=== PATIENT | female | born 1945 | race Caucasian/White ===

== ENCOUNTER → 2017-05-02 | Outpatient (CLI) | payer OTHER | LOC: FIMAGING 14:26 | PROVIDERS: ATTEND Family Medicine | DX: Z12.31 Encounter for screening mammogram for malignant neoplasm of breast (principal) | CPT/HCPCS: G0202 ==

== ENCOUNTER 2017-06-12 12:34 | Emergency (ER) | payer OTHER ==
[2017-06-12 12:46] VITALS: RESP 18; TEMP 97.9
--- NOTE | 2017-06-12 13:18 | EDPHY ---
H & P Stated Complaint: Doing pilates;rolled onto apparatus & hit R ribs;sent by PCP for eval Time Seen by Provider: 06/12/17 13:18 - Personal History Current Tetanus Diphtheria and Acellular Pertussis (TDAP): Unsure - Social History Smoking Status: Never smoked Constitutional: Initial Vital Signs Temperature (C) 36.6 C 06/12/17 12:41 Heart Rate 65 06/12/17 12:41 Respiratory Rate 18 06/12/17 12:41 Blood Pressure 141/68 H 06/12/17 12:41 O2 Sat (%) 96 06/12/17 12:41 O2 Delivery Mode Room Air Allergies/Adverse Reactions: codeine Allergy (Mild, Verified 06/12/17 12:45) GI Home Medications: Medication Instructions Recorded Hydrocodone/APAP 5/325 [Bethesda 1 - 2 each PO Q4-6PRN PRN #20 tab 06/12/17 5/325] Ibuprofen [Motrin] 800 mg PO Q8 #20 tab 06/12/17 Medical Decision Making - Diagnostics Imaging Results: Imaging Impressions Ribs w/Chest X-Ray 06/12/17 13:22 Impression: 1. Likely two, not significantly displaced, right lateral rib fractures. 2. New right lung apex nodule. Recommend noncontrast chest CT for further evaluation. Results discussed with Dr. Aviles at 2:03 PM ED Course/Re-evaluation: CHIEF COMPLAINT: Right rib pain HISTORY OF PRESENT ILLNESS: Patient was doing Pilates last Saturday and fell onto her right ribs. She feels like she has some rib pain and contusion but she thought that the pain should resolved by now so she came to the emergency department to get checked out. She has been using a little bit of ibuprofen. She denies shortness of breath. She denies any injury to the skin. She denies any other injury. REVIEW OF SYSTEMS: A 10 point review of systems was performed and is negative with the exception of the elements mentioned in the history of present illness. PHYSICAL EXAM: HR, BP, O2 Sat, RR. Temp noted General Appearance: Alert, well hydrated, appropriate, and non-toxic appearing. Head: Atraumatic without scalp tenderness or obvious injury Eyes: Pupils equal, round, reactive to light and accommodation, EOMI, no trauma , no injection. Ears: Clear bilaterally, no perforation, normal landmarks Nose: Atraumatic, no rhinorrhea, clear. Throat: There is no erythema or exudates, no lesions, normal tonsils, mucus membranes moist. Neck: Supple, 2+ carotid upstroke, nontender, no lymphadenopathy. Respiratory: No retractions, no distress, no wheezes, and no accessory muscle use. Lungs are clear to auscultation bilaterally. Cardiovascular: Regular rate and rhythm, no murmurs, rubs, or gallops. Bilateral carotid, radial, dorsalis pedis, and posterior tibial pulses intact. Good capillary refill all extremities. Gastrointestinal: Abdomen is soft, nontender, non-distended, no masses, no rebound, no guarding, no peritoneal signs. Musculoskeletal: Pain to palpation over the right lateral ribs. No skin injury. Normal breath sounds Normal active ROM of all extremities, atraumatic. Neurological: Alert, appropriate, and interactive. The patient has normal DTRs and non-focal cranial nerves, motor, sensory, and cerebellar exam. Skin: No rashes, good turgor, no nodules on palpation. Past medical history: Noncontributory Past surgical history: Noncontributory Family history: Noncontributory Social history: Single, not employed, does not abuse tobacco drugs or alcohol lives alone DIAGNOSTICS/PROCEDURES/CRITICAL CARE TIME: Study: PA and two views of the right ribs X-ray Indication: Trauma Results: After viewing the images myself on the PACS system. My interpretation of the images is: 2 nondisplaced rib fractures and a pulmonary nodule. The radiologist interpretation is pending. DIFFERENTIAL DIAGNOSIS: Includes but is not limited to: Rib fracture, rib contusion, musculoskeletal injury, internal organ injury. MEDICAL DECISION MAKING: This patient has mild tenderness to palpation along the right lateral ribs. She does want an x-ray even though I am not suspecting a lung injury. She did this about 5 days ago and she feels like it should be better by now. She does state it is somewhat better but not completely and that is why she is here. She has 2 nondisplaced rib fractures. I will ask her to use some ibuprofen and I will give her a few Vicodin. And incentive spirometer I will also ask this patient follow up to get a CT scan of her pulmonary nodule which is new compared to a prior x-ray from 2014 Departure - Departure Disposition: Home, Routine, Self-Care Clinical Impression: Ribs, multiple fractures Qualifiers: Encounter type: initial encounter Fracture type: closed Laterality: right Qualified Code(s): S22.41XA - Multiple fractures of ribs, right side, initial encounter for closed fracture Condition: Good Instructions: Rib Fracture (ED) Additional Instructions: See your doctor but a follow-up noncontrast chest CT for pulmonary nodule Referrals: Miguel Denis MD [Primary Care Provider] - As per Instructions Prescriptions: Hydrocodone/APAP 5/325 [Bethesda 5/325] 1 - 2 each PO Q4-6PRN PRN #20 tab PRN Reason: Pain, Moderate Ibuprofen [Motrin] 800 mg PO Q8 #20 tab
[2017-06-12 14:44] VITALS: BP 144/78; PULSE 76; O2SAT 95
== END 2017-06-12 14:52 | disposition home or self-care (01) ==
DX: S22.41XA Multiple fractures of ribs, right side, initial encounter for closed fracture (principal); W18.39XA Other fall on same level, initial encounter

== ENCOUNTER → 2017-07-02 | Outpatient (CLI) | payer OTHER | LOC: FIMAGING 14:49 | PROVIDERS: ATTEND Family Medicine | DX: R91.1 Solitary pulmonary nodule (principal); I25.10 Atherosclerotic heart disease of native coronary artery without angina pectoris; D35.01 Benign neoplasm of right adrenal gland ==

== ENCOUNTER → 2018-04-01 | Outpatient (CLI) | payer OTHER | LOC: FIMAGING 16:44 | PROVIDERS: ATTEND Nurse Practitioner | DX: R22.41 Localized swelling, mass and lump, right lower limb (principal) ==

== ENCOUNTER → 2018-06-12 | Outpatient (CLI) | payer OTHER | LOC: FIMAGING 15:30 | PROVIDERS: ATTEND Family Medicine | DX: Z12.31 Encounter for screening mammogram for malignant neoplasm of breast (principal); C90.00 Multiple myeloma not having achieved remission ==

== ENCOUNTER 2018-11-07 21:55 | Inpatient (IN) | payer OTHER ==
--- NOTE | 2018-11-07 22:13 | EDPHY ---
General - History Smoking Status: Never smoked Time Seen by Provider: 11/07/18 22:06 Narrative: CLINICAL IMPRESSION: RSV ASSESSMENT/PLAN: Patient is a 73-year-old female with a significant medical history of multiple myeloma currently on oral chemotherapy who presents with complaints of fever, runny nose and cough. Patient is afebrile, she is tired appearing however not toxic-appearing. She was noted to have mild tachycardia on arrival, oxygen saturation was 91% on room air. Laboratory studies were obtained including CBC which revealed no evidence of leukocytosis. Procalcitonin which was within normal limits. Basic metabolic panel which revealed hyponatremia, I suspect this is secondary to poor intake. CXR with no evidence of consolidation. Influenza negative, RSV positive. The patient was observed for a period of time and proceeded to have multiple coughing episodes, on repeat examination her oxygen saturation was 89% on room air. Subsequently another nebulizer treatment with lidocaine was ordered, this mildly improved her cough and improved her oxygen saturation to the low 90s. History of physical examination is consistent with RSV with intermittent hypoxia requiring oxygen. The patient will be admitted to the hospitalist service for further observation and management, I spoke directly with Dr. Hughes who will be the admitting physician. On repeat examination and prior to transfer to the floor she is tired appearing however in no acute distress, heart rate continued in the low 100s. DIFFERENTIAL DX: Adult fever including but not limited to viral syndromes including influenza, urinary tract infection, pneumonia and sepsis. ED COURSE: 2332: Case discussed with Dr. Marrufo 2355: Patient with reassuring workup thus far. WBC normal, procalcitonin normal. Patient noted to be hyponatremic however she has had poor intake. Influenza still pending. Chest x-ray with no evidence of consolidation or pneumonia. Patient still with frequent dry cough. Will trial inhaled lidocaine. 0010: On repeat examination the patient is still very tired appearing. She has frequent dry cough. Her oxygen saturation was noted to be 89% on room air. CHIEF COMPLAINT: Fever, runny nose, cough HPI: Patient is a 73-year-old female with a significant history of multiple myeloma currently on oral chemotherapy who presents to the emergency department with fever, runny nose, sore throat, postnasal drip and worsening cough. Patient reports she lost her mother this past Saturday night, she was spending time at [facility] when she started to have a little bit of runny nose and postnasal drip. On Saturday she noted increased drainage and increased sore throat. On Saturday she reports "a full blown cold". Patient reports since that time she has had increased cough, it is dry and nonproductive. She is generally feeling unwell. She denies any chest pain, shortness of breath or abdominal pain. She did have a fever of T-max prior to arrival at 104 F, has not taken any medication for fever control. She is currently in remission from multiple myeloma since May however is continuing Revlimid, Bactrim and acyclovir. She denies any neck stiffness, difficulty swallowing or myalgias. She denies any headache or dizziness. PMH: Multiple myeloma Family History: Not contributory Social History: Never smoker, CBD REVIEW OF SYSTEMS: All other systems negative Constitutional: Fever, decreased appetite. Eyes: No discharge, vision change ENT: Sore throat, runny nose. Denies congestion or earache. Cardiovascular: No chest pain, no palpitations. Respiratory: Cough, denies shortness of breath. Gastrointestinal: No abdominal pain, no vomiting, diarrhea. Genitourinary: No hematuria, dysuria, flank pain. Musculoskeletal: No back pain, joint swelling, joint pain, myalgias. Skin: No rashes, color change. Neurological: No headache, dizziness, weakness. PHYSICAL EXAM: General Appearance: Alert, elderly, thin, tired appearing however not toxic- appearing.. HENT: Normocephalic, atraumatic. Bilateral external ears are normal. Bilateral tympanic membranes are normal with pearly kiser reflex. Nares are clear, mucosa is pink. Oropharynx is clear, uvula is midline. There is no tonsillar enlargement or exudate. Posterior pharynx is mildly erythematous. The dentition is normal. Eyes: PERRLA, no acute vision change, nystagmus, swelling, discharge, pain or photosensitivity. Conjunctiva pink, no pallor or injection. Neck: Supple, nontender, no lymphadenopathy, no midline pain, FROM, no meningismus. Respiratory: Frequent dry cough. There are no retractions. Lungs with global expiratory wheeze, failing diminished along the left lower and mid lobe. Cardiac: Mild tachycardia on arrival, no murmurs or gallops. Gastrointestinal: Abdomen is soft, nontender, bowel sounds normal, no masses/ hernia, no rigidity, guarding or focal peritoneal findings. Neurological: Alert and oriented x 3, CN 2-12 grossly intact, normal gait no ataxia, DTR's intact, normal sensation and strength Skin: Warm, dry, no rashes, no nodules on palpation. Musculoskeletal: Extremities are symmetrical, full range of motion, no tenderness, deformity, swelling, or erythema. Psychiatric: Patient is oriented X 3, there is no agitation. MEDICAL DECISION MAKING: Patient was seen independently. Secondary supervising physician at time of evaluation was Dr. Marrufo. Diagnosis: RSV. New, requires workup Summary: See Assessment and Plan for summary of ED visit Clinical lab tests: ordered / reviewed. Independent visualization of images, tracing, or specimens: Yes. Decision to obtain medical records or history from someone other than the patient: No Review / Summarize previous medical records: Yes Discussed patient with another provider: Yes Patient Progress: Stable, admit. (Samantha Lara) ED PA DICTATION I evaluated and participated in the management of the patient. I also evaluated the patient independently. My co-signature indicates that I have reviewed this chart and I agree with the findings and plan of care as documented. My personal H&P findings include: 73-year-old female with medical comorbidities presents with cough, fever, tachycardia. Testing reveals normal chest x-ray, RSV positivity. Patient with some respiratory distress due to cough, mild hypoxia present. Plan to admit her to the hospital. (Niki Marrufo) - Diagnostics Imaging Results: Imaging Impressions Chest X-Ray 11/07/18 22:25 Impression: 1. Prominence of pericardial fat pad is left heart border along with chronic subsegmental atelectasis in the lingula. 2. No active cardiopulmonary disease seen. - Objective Vital Signs: Initial Vital Signs Temperature (C) 37.7 C 11/07/18 22:01 Heart Rate 107 H 11/07/18 22:01 Respiratory Rate 18 11/07/18 22:01 Blood Pressure 117/65 11/07/18 22:01 O2 Sat (%) 91 L 11/07/18 22:01 O2 Delivery Mode Room Air Allergies/Adverse Reactions: codeine Allergy (Mild, Verified 06/12/17 12:45) GI Home Medications: Medication Instructions Recorded Acyclovir 11/07/18 Bactrim DS 11/07/18 Lenalidomide [Revlimid] 11/07/18 Laboratory Results: Laboratory Results 11/07/18 22:25 11/07/18 22:25 11/07/18 11/07/18 11/07/18 22:40 22:25 22:25 WBC 7.73 10^3/uL 10^3/uL (3.80-9.50) RBC 3.98 10^6/uL L 10^6/uL (4.18-5.33) Hgb 13.2 g/dL g/dL (12.6-16.3) Hct 38.0 % % (38.0-47.0) MCV 95.5 fL fL (81.5-99.8) MCH 33.2 pg pg (27.9-34.1) MCHC 34.7 g/dL g/dL (32.4-36.7) RDW 13.9 % % (11.5-15.2) Plt Count 178 10^3/uL 10^3/uL (150-400) MPV 9.7 fL fL (8.7-11.7) Neut % (Auto) 76.6 % H % (39.3-74.2) Lymph % (Auto) 15.0 % % (15.0-45.0) [place] % (Auto) 7.8 % % (4.5-13.0) Eos % (Auto) 0.0 % L % (0.6-7.6) Baso % (Auto) 0.3 % % (0.3-1.7) Nucleat RBC Rel Count 0.0 % % (0.0-0.2) Absolute Neuts (auto) 5.93 10^3/uL 10^3/uL (1.70-6.50) Absolute Lymphs (auto) 1.16 10^3/uL 10^3/uL (1.00-3.00) Absolute Monos (auto) 0.60 10^3/uL 10^3/uL (0.30-0.80) Absolute Eos (auto) 0.00 10^3/uL L 10^3/uL (0.03-0.40) Absolute Basos (auto) 0.02 10^3/uL 10^3/uL (0.02-0.10) Absolute Nucleated RBC 0.00 10^3/uL 10^3/uL (0-0.01) Immature Gran % 0.3 % % (0.0-1.1) Immature Gran # 0.02 10^3/uL 10^3/uL (0.00-0.10) Sodium 129 mEq/L L mEq/L (135-145) Potassium 3.6 mEq/L mEq/L (3.5-5.2) Chloride 97 mEq/L mEq/L (97-110) Carbon Dioxide 21 mEq/l L mEq/l (22-31) Anion Gap 11 mEq/L mEq/L (6-14) BUN 12 mg/dL mg/dL (7-23) Creatinine 0.7 mg/dL mg/dL (0.6-1.0) Estimated GFR > 60 Glucose 109 mg/dL H mg/dL (70-100) Calcium 8.5 mg/dL mg/dL (8.5-10.4) Procalcitonin 0.04 ng/mL ng/mL (0.02-0.10) Nasal Influenza A PCR NEGATIVE FOR FLU A (NEGATIVE) Nasal Influenza B PCR NEGATIVE FOR FLU B (NEGATIVE) RSV (PCR) RSV DETECTED H (NEGATIVE) Medications Given: Acetaminophen (Tylenol) 650 mg PO Q4HRS PRN PRN Reason: Pain, Mild/Fever, Can Take PO Stop: 05/07/19 00:32 Last Admin: 11/08/18 01:19 Dose: 650 mg Guaifenesin/Dextromethorphan (Robitussin Dm Oral Liquid) 10 ml PO Q4HRS PRN PRN Reason: Cough, Moderate Stop: 05/07/19 00:46 Last Admin: 11/08/18 01:19 Dose: 10 ml Sodium Chloride (Ns) 1,000 mls @ 100 mls/hr IV CONT NICK Stop: 11/08/18 10:44 Last Admin: 11/08/18 01:19 Dose: 1,000 mls Lorazepam (Ativan) 0.5 mg PO Q8HRS PRN PRN Reason: Sleep/Insomnia Stop: 05/07/19 03:20 Last Admin: 11/08/18 03:56 Dose: 0.5 mg Discontinued Medications Albuterol (Proventil Neb) 3 ml IH EDNOW ONE Stop: 11/07/18 22:27 Last Admin: 11/07/18 22:58 Dose: 3 ml Sodium Chloride (Ns) 1,000 mls @ 0 mls/hr IV ONCE ONE PRN Reason: Wide Open Stop: 11/07/18 22:27 Last Admin: 11/07/18 22:57 Dose: 1,000 mls Lidocaine HCl (Lidocaine Hcl 4%) 100 mg IH ONCE ONE Stop: 11/07/18 23:53 Last Admin: 11/08/18 00:29 Dose: 100 mg Departure - Departure Disposition: [facility] Acute Clinical Impression: RSV (acute bronchiolitis due to respiratory syncytial virus)
[2018-11-07] MEDS ORDERED: ALBUTEROL 3 ML DEYVIAL IH ONE (22:26)
[2018-11-07] MEDS ORDERED: NS 1,000 ML IV ONE (22:26)
[2018-11-07 23:02] LABS: PLATELET COUNT 178 10^3/uL (150-400)
[2018-11-07] MEDS ORDERED: LIDOCAINE 4% 5 ML AMP IH ONE (23:52)
[2018-11-08] MEDS ORDERED: ONDANSETRON DISINTEGRATING 4 MG TAB PO PRN ×2 (00:33→00:44)
[2018-11-08] MEDS ORDERED: ONDANSETRON 4 MG/2 ML VIAL IVP PRN ×2 (00:33→00:44)
[2018-11-08] MEDS ORDERED: IBUPROFEN 200 MG TAB PO PRN (00:44)
[2018-11-08] MEDS ORDERED: ALBUTEROL 3 ML DEYVIAL IH PRN (00:44)
[2018-11-08] MEDS ORDERED: NS 1,000 ML IV SCH (00:45)
[2018-11-08] MEDS ORDERED: CEPACOL LOZENGE PO PRN (00:47)
[2018-11-08] MEDS: ACETAMINOPHEN 325 MG TAB PO PRN ×2 (01:19→12:28)
[2018-11-08] MEDS: GUAIFENESIN/DM 10 ML UDCUP PO PRN ×2 (01:19→09:45)
[2018-11-08] MEDS: LORazepam 0.5 MG TAB PO PRN (03:56)
[2018-11-08 04:57] LABS: PLATELET COUNT 157 10^3/uL (150-400)
--- NOTE | 2018-11-08 05:04 | PDGENHP ---
History and Physical - Chief Complaint Cough - History of Present Illness Source-patient provides history appears reliable. EMR was reviewed and case discussed with ED provider. HPI-this is a pleasant 73-year-old female with past medical history significant for multiple myeloma in remission otherwise healthy who presents emergency department today with complaints of 5 days of worsening sore throat, rhinorrhea and occasional productive cough with yellow sputum. Patient also notes particularly increased malaise and fatigue. She denies any myalgias. She denies any nausea/vomiting/diarrhea. Patient suspect she has had several sick contacts that she has been mostly at [facility] over the past week since her mother just recently a week ago. History Information - Allergies/Home Medication List Allergies/Adverse Reactions: codeine Allergy (Mild, Verified 06/12/17 12:45) GI Home Medications: Acyclovir 11/07/18 [Last Taken Unknown] Bactrim DS 11/07/18 [Last Taken Unknown] Lenalidomide [Revlimid] 11/07/18 [Last Taken Unknown] I have personally reviewed and updated: family history, medical history, social history, surgical history - Past Medical History Additional medical history: Multiple myeloma reported in remission status post stem cell transplant and currently on Revlimid. Patient on continuous prophylactic acyclovir and Bactrim. - Surgical History Reports: appendectomy - Family History Positive for: CAD - Social History Smoking Status: Never smoked Alcohol Use: Occasionally (Few glasses of wine per week with dinner.) Drug Use: Other (CBD oil) Review of Systems Review of Systems: ROS: 10pt was reviewed & negative except for what was stated in HPI & below Physical Exam Physical Exam: Temp Pulse Resp BP Pulse Ox 37.7 C 94 16 115/74 92 11/08/18 02:53 11/08/18 02:53 11/08/18 02:53 11/08/18 01:00 11/08/18 02:53 O2 (L/minute) 1 Lab Data & Imaging Review 11/08/18 04:20 11/07/18 22:25 WBC 6.26 10^3/uL (3.80-9.50) 11/08/18 04:20 RBC 3.61 10^6/uL (4.18-5.33) L 11/08/18 04:20 Hgb 12.0 g/dL (12.6-16.3) L 11/08/18 04:20 Hct 35.2 % (38.0-47.0) L 11/08/18 04:20 MCV 97.5 fL (81.5-99.8) 11/08/18 04:20 MCH 33.2 pg (27.9-34.1) 11/08/18 04:20 MCHC 34.1 g/dL (32.4-36.7) 11/08/18 04:20 RDW 14.1 % (11.5-15.2) 11/08/18 04:20 Plt Count 157 10^3/uL (150-400) 11/08/18 04:20 MPV 9.9 fL (8.7-11.7) 11/08/18 04:20 Neut % (Auto) 74.4 % (39.3-74.2) H 11/08/18 04:20 Lymph % (Auto) 15.5 % (15.0-45.0) 11/08/18 04:20 [place] % (Auto) 9.6 % (4.5-13.0) 11/08/18 04:20 Eos % (Auto) 0.0 % (0.6-7.6) L 11/08/18 04:20 Baso % (Auto) 0.2 % (0.3-1.7) L 11/08/18 04:20 Nucleat RBC Rel Count 0.0 % (0.0-0.2) 11/08/18 04:20 Absolute Neuts (auto) 4.66 10^3/uL (1.70-6.50) 11/08/18 04:20 Absolute Lymphs (auto) 0.97 10^3/uL (1.00-3.00) L 11/08/18 04:20 Absolute Monos (auto) 0.60 10^3/uL (0.30-0.80) 11/08/18 04:20 Absolute Eos (auto) 0.00 10^3/uL (0.03-0.40) L 11/08/18 04:20 Absolute Basos (auto) 0.01 10^3/uL (0.02-0.10) L 11/08/18 04:20 Absolute Nucleated RBC 0.00 10^3/uL (0-0.01) 11/08/18 04:20 Immature Gran % 0.3 % (0.0-1.1) 11/08/18 04:20 Immature Gran # 0.02 10^3/uL (0.00-0.10) 11/08/18 04:20 Sodium 129 mEq/L (135-145) L 11/07/18 22:25 Potassium 3.6 mEq/L (3.5-5.2) 11/07/18 22:25 Chloride 97 mEq/L (97-110) 11/07/18 22:25 Carbon Dioxide 21 mEq/l (22-31) L 11/07/18 22:25 Anion Gap 11 mEq/L (6-14) 11/07/18 22:25 BUN 12 mg/dL (7-23) 11/07/18 22:25 Creatinine 0.7 mg/dL (0.6-1.0) 11/07/18 22:25 Estimated GFR > 60 11/07/18 22:25 Glucose 109 mg/dL (70-100) H 11/07/18 22:25 Calcium 8.5 mg/dL (8.5-10.4) 11/07/18 22:25 Procalcitonin 0.04 ng/mL (0.02-0.10) 11/07/18 22:25 Nasal Influenza A PCR NEGATIVE FOR FLU A (NEGATIVE) 11/07/18 22:40 Nasal Influenza B PCR NEGATIVE FOR FLU B (NEGATIVE) 11/07/18 22:40 RSV (PCR) RSV DETECTED (NEGATIVE) H 11/07/18 22:40 Imaging Review: PA and lateral chest x-ray 2251 hours History: Meets sepsis criteria, suspected infection Findings: Comparison to 06/12/2017. Heart size and pulmonary vasculature remain within normal limits. There is mild prominence of the pericardial fat pad at the left base. There is no new consolidation, effusion, or pneumothorax. There is also a band of subsegmental atelectasis suspected at the lingula. Osseous structures are unchanged. Anterior fusion is noted mid thoracic spine segments situation of the anterior kyphosis. Impression: 1. Prominence of pericardial fat pad is left heart border along with chronic subsegmental atelectasis in the lingula. 2. No active cardiopulmonary disease seen. Dictated By: Harjit Verdugo MD Assessment & Plan Assessment: 73-year-old female with history of multiple myeloma in remission status post stem-cell transplant who presents emergency department today with complaints of 1 week of URI symptoms. #RSV (acute bronchiolitis due to respiratory syncytial virus) (Acute) - rapid testing is positive. Patient has a placed on isolation. Supportive care. Nebulizers p.r.n.. Supplemental oxygen. #hypoxia - patient without any previous need for oxygen by her report. Her O2 sats to declined 89% on room air but will continue to titrate down on her O2 r requirements. #hyponatremia - suspected is acutely due to hypovolemia as patient does appear quite dehydrated. Will continue with IV fluids overnight monitor her sodium in the morning. #History multiple myeloma - in remission status post stem-cell transplant. Patient without any neutropenia or leukocytosis. FEN - IV fluids overnight as patient does appear to be dry still. Electrolyte monitoring replacement if needed. Diet as tolerated. PPX-SCDs. Consider anticoagulation if patient should stay additional day. Cor status-full Disposition-patient admitted to observation status on the [facility] for continued IV fluid hydration and antiemetics.
--- NOTE | 2018-11-08 10:45 | ASMTCMCOM ---
CM Note CM Note Notes: Met with Pt/ and chart reviewed for discharge. Pt is a 74yr old admitted with 5 days worsening sore throat, rhinorrhea, a productive cough of yellowish secretions and general malaise. Pt feels she may have caught the cold while visiting her Mother in the senior living and Her mother just last weekend. Today Pt continues on O2 and IVF. Pt has a good support system, her at the bed side and a daughter near by. Pt has a hx of Multi-mylomia and is in remission, on Revlimid and post Stem cell transplant. Milana live here in [place] with her Gerardo and a daughter Rosibel in the area. Pt will likely discharge home with once medically cleared. CM available for needs. PLAN: Likely home with once medically cleared. Date Signed: 11/08/2018 10:45 AM Electronically Signed By:Yolis Schofield
--- NOTE | 2018-11-08 10:59 | HOSPPROG ---
Hospitalist Progress Note Assessment/Plan: 73 yo F w/PMH of MM currently in remission presenting with SOB, cough, fever and found to have RSV bronchitis # RSV bronchitis: patient presenting with fever, cough, sob and found to have RSV on respiratory panel. Procalcitonin negative, blood cultures with ngtd, CXR personally reviewed and no e/o consolidation/effusion etc. Plan to continue supportive care for now, repeat cxr in am. # acute hypoxic respiratory failure: with oxygen saturations decreasing to high 80s and with associated sob when on RA, improved on 2L, 2/2 above # sepsis: patient meeting SIRS criteria with fever, tachycardia. WBC not increased but does have left shift, as above suspect all related to viral illness, but will start levofloxacin for possible concurrent atypical pna given increasing fevers this am, if cultures remain negative and cxr without new infiltrate, will dc abx in am # hyponatremia: improved slightly with IVF and likely hypovolemic hyponatremia, will continue to monitor # multiple myeloma: reportedly in remission, on revlimib as an OP which will be continued # IP status, patient will require > 48 hours stay for eval/mgmt of above Patient new to my care. Old records reviewed and summarized as above. Further hx obtained from present at bedside. Subjective: patient continues to feel poorly, having fever early this am and again this afternoon, shortness of breath improved with o2 on Objective: Vital Signs Temp Pulse Resp BP Pulse Ox 36.9 C 89 18 134/58 H 92 11/08/18 07:24 11/08/18 07:24 11/08/18 07:24 11/08/18 07:24 11/08/18 07:24 Laboratory Results 11/08/18 04:20 11/08/18 04:20 11/07/18 11/08/18 11/09/18 05:59 05:59 05:59 Intake Total 1500 Output Total 1 Balance 1499 chronically ill appearing anicteric op clear tachy regular dec bs at bases, increased wob soft nt nd no cce warm dry well perfused oriented appropriate ICD10 Worksheet Patient Problems: Problems Problem Status Onset RSV (acute bronchiolitis due to respiratory syncytial virus) Acute
[2018-11-08] MEDS: NS 1,000 ML IV SCH (11:48)
[2018-11-08] MEDS: ACYCLOVIR 400 MG TAB PO SCH ×2 (12:24→21:31)
[2018-11-08] MEDS: ASPIRIN 325 MG TAB PO SCH (12:24)
[2018-11-08] MEDS: CETIRIZINE 10 MG TAB PO SCH (15:22)
[2018-11-08] MEDS: guaiFENesin/CODEINE PHOS 10 ML UDCUP PO PRN ×2 (15:23→21:32)
[2018-11-08] MEDS ORDERED: NS BOLUS 1000 ML (Wide open) IV ONE (17:00)
[2018-11-08] MEDS: Lenalidomide [Revlimid] 10 MG PO SCH (21:27)
[2018-11-08] MEDS: DOCUSATE SODIUM 100 MG CAP PO SCH (21:31)
[2018-11-08] MEDS: MELATONIN 3 MG TAB PO SCH (21:32)
[2018-11-09] MEDS: guaiFENesin/CODEINE PHOS 10 ML UDCUP PO PRN (03:49)
[2018-11-09] MEDS: ACETAMINOPHEN 325 MG TAB PO PRN (03:57)
[2018-11-09 04:19] LABS: PLATELET COUNT 138 10^3/uL (150-400)
[2018-11-09] MEDS: NS 1,000 ML IV SCH ×2 (07:33→22:48)
[2018-11-09] MEDS: ACYCLOVIR 400 MG TAB PO SCH ×2 (08:29→21:42)
[2018-11-09] MEDS: DOCUSATE SODIUM 100 MG CAP PO SCH ×2 (08:29→21:42)
[2018-11-09] MEDS: ASPIRIN 325 MG TAB PO SCH (08:29)
[2018-11-09] MEDS: CETIRIZINE 10 MG TAB PO SCH (08:29)
--- NOTE | 2018-11-09 12:01 | HOSPPROG ---
Hospitalist Progress Note Assessment/Plan: 73 yo F w/PMH of MM currently in remission presenting with SOB, cough, fever and found to have RSV bronchitis as well as new LLL PNA # RSV bronchitis: patient presenting with fever, cough, sob and found to have RSV on respiratory panel. Continued fevers and e/o sepsis led to repeat CXR and initiation of abx for presumed concurrent bacterial pna as next # LLL PNA: not present on initial CXR but personal review of CXR from 11/09 reveals new LLL infiltrate and small effusion c/w pneumonia, started levofloxacin yesterday and added CTX today for typical coverage as well given cxr appearance. Cultures with ngtd. # acute hypoxic respiratory failure: with oxygen saturations decreasing to high 80s and with associated sob when on RA, improved on 2L, 2/2 above # sepsis: patient meeting SIRS criteria with fever, tachycardia. WBC not increased but does have left shift, as above, viral illness with suspected superimposed bacterial pna, fever curve seems to be decreasing # hyponatremia: improved with IVF and likely hypovolemic hyponatremia, will continue to monitor # hypocalcemia: slightly low, will replete # multiple myeloma: reportedly in remission, on revlimib as an OP which will be continued # IP status, patient will require > 48 hours stay for eval/mgmt of above Care plan reviewed with CM, patients present at bedside Subjective: no significant overnight events, did have fever overnight, continues to feel very weak and overall sick, sob Objective: Vital Signs Temp Pulse Resp BP Pulse Ox 36.9 C 51 L 16 87/54 L 95 11/09/18 07:47 11/09/18 07:47 11/09/18 07:47 11/09/18 07:47 11/09/18 07:47 Laboratory Results 11/09/18 03:40 11/09/18 03:40 11/08/18 11/09/18 11/10/18 05:59 05:59 05:59 Intake Total 1500 3847 Output Total 1 Balance 1499 3847 chronically ill appearing anicteric op clear tachy regular dec bs at bases, increased wob soft nt nd no cce warm dry well perfused oriented appropriate - Time Spent With Patient Time Spent with Patient: greater than 35 minutes Time Spent with Patient: Greater than 35 minutes spent on this patients care, greater than 50% of time spent counseling, educating, and coordinating care regarding the above mentioned plan. ICD10 Worksheet Patient Problems: Problems Problem Status Onset RSV (acute bronchiolitis due to respiratory syncytial virus) Acute
[2018-11-09] MEDS ORDERED: PROTOCOL CALCIUM 1 DOSE IV PRN (12:02)
[2018-11-09] MEDS ORDERED: CALCIUM GLUCONATE 50 ML IV ONE (13:00)
--- NOTE | 2018-11-09 17:15 | PDMN ---
Medical Necessity Medical necessity: MCG: M282 PNA: 73 yo F with PMHx: MM, in remission s/p stem cell tplant currently on Revlimid, , presents with 5 days worsening sore throat, rhinorrhea, cough, malaise, and fatigue, RSV +, hypoxia 89% RA , CXR reveals new LLL infiltrate and sm. effusion c/w pna. hyponatremia, pt meets SIRS criteria with fever, tachycardia, L shift, status changed to INPT 11/09/18 for further monitoring, eval and tx of above. > 2 MN>
[2018-11-09] MEDS: MELATONIN 3 MG TAB PO SCH (21:42)
[2018-11-09] MEDS: LORazepam 0.5 MG TAB PO PRN (21:42)
[2018-11-09] MEDS: Lenalidomide [Revlimid] 10 MG PO SCH (22:46)
[2018-11-10 04:06] LABS: PLATELET COUNT 138 10^3/uL (150-400)
[2018-11-10] MEDS ORDERED: CALCIUM GLUCONATE 50 ML IV ONE (07:51)
[2018-11-10] MEDS ORDERED: PROTOCOL POTASSIUM 1 DOSE MISC PRN (08:01)
[2018-11-10] MEDS: ACYCLOVIR 400 MG TAB PO SCH ×2 (08:10→20:15)
[2018-11-10] MEDS: ASPIRIN 325 MG TAB PO SCH (08:10)
[2018-11-10] MEDS: DOCUSATE SODIUM 100 MG CAP PO SCH ×2 (08:10→20:37)
[2018-11-10] MEDS: CETIRIZINE 10 MG TAB PO SCH (08:11)
[2018-11-10] MEDS: SULFAMETHOX/TMP 800/160 MG 1 TAB PO SCH (08:11)
--- NOTE | 2018-11-10 08:28 | CPEKG ---
Test Reason : OPEN Blood Pressure : / mmHG Vent. Rate : 107 BPM Atrial Rate : 108 BPM P-R Int : 119 ms QRS Dur : 096 ms QT Int : 392 ms P-R-T Axes : 052 076 264 degrees QTc Int : 523 ms Sinus tachycardia Repol abnrm suggests ischemia, anterolateral Prolonged QT interval Confirmed by Seun Oliveira ([id number]) on 11/10/2018 8:27:35 AM Referred By: Denise Hughes Confirmed By:Seun Oliveira
--- NOTE | 2018-11-10 08:30 | CPEKG ---
Test Reason : OPEN Blood Pressure : / mmHG Vent. Rate : 068 BPM Atrial Rate : 068 BPM P-R Int : 120 ms QRS Dur : 092 ms QT Int : 425 ms P-R-T Axes : 044 076 043 degrees QTc Int : 453 ms Sinus rhythm Confirmed by Seun Oliveira ([id number]) on 11/10/2018 8:29:50 AM Referred By: Denise Hughes Confirmed By:Seun Oliveira
[2018-11-10] MEDS: ACETAMINOPHEN 325 MG TAB PO PRN (09:39)
[2018-11-10] MEDS: guaiFENesin/CODEINE PHOS 10 ML UDCUP PO PRN (09:42)
[2018-11-10] MEDS ORDERED: POTASSIUM CL 10 MEQ TAB PO ONE ×2 (10:05→22:13)
[2018-11-10] MEDS ORDERED: BENZONATATE 100 MG CAP PO PRN (14:14)
--- NOTE | 2018-11-10 15:18 | HOSPPROG ---
Hospitalist Progress Note Assessment/Plan: 73 yo F w/PMH of MM currently in remission presenting with SOB, cough, fever and found to have RSV bronchitis as well as new LLL PNA Pneumonia- I reviewed the patients chart and CXR which shows a new LLL infiltrate consistent with PNA. May be viral due to RSV or bacterial. Has been on rocephin and levaquin. Will change to rocephin and azithro for CAP coverage and treat for normal course. -change to cap coverage with rocephin/azithro -add tessalon pearls for cough -oxygen PRN. -await cultures, RSV bronchitis: patient presenting with fever, cough, sob and found to have RSV on respiratory panel. Continued fevers and e/o sepsis led to repeat CXR and initiation of abx for presumed concurrent bacterial pna as next acute hypoxic respiratory failure: with oxygen saturations decreasing to high 80s and with associated sob when on RA, improved on 2L, 2/2 above sepsis: patient meeting SIRS criteria with fever, tachycardia. WBC not increased but does have left shift, as above, viral illness with suspected superimposed bacterial pna, fever curve seems to be decreasing hyponatremia: suspect hypovolemic hyponatremia. Cont intravenous saline and repeat serum sodium in am. hypocalcemia: calcium today 6.9 but albumin low and calcium corrects to 8.4. Ionized slightly low as well. On protocol. multiple myeloma: On revlimid, 28 day cycle. cont along with prophylactic bactrim, acyclovir. IP status, patient will require > 48 hours stay for eval/mgmt of above Care plan reviewed with CM, patients present at bedside Subjective: still short of breath and coughing a lot despite cough syrup. Objective: Vital Signs Temp Pulse Resp BP Pulse Ox 36.8 C 59 L 16 83/44 L 94 11/10/18 11:18 11/10/18 11:18 11/10/18 11:18 11/10/18 11:18 11/10/18 11:18 Laboratory Results 11/10/18 04:00 11/10/18 04:00 11/09/18 11/10/18 11/11/18 05:59 05:59 05:59 Intake Total 950 Balance 950 - Physical Exam Constitutional: no apparent distress, appears nourished, not in pain Eyes: PERRL, anicteric sclera, EOMI Ears, Nose, Mouth, Throat: moist mucous membranes, hearing normal, ears appear normal, no oral mucosal ulcers Cardiovascular: regular rate and rhythym, no murmur, rub, or gallop Respiratory: no respiratory distress, inspiratory crackles, other (left base crackles. ) Gastrointestinal: normoactive bowel sounds, soft, non-tender abdomen, no palpable masses Genitourinary: no bladder fullness, no bladder tenderness, no renal bruits Skin: no rashes or abrasions, no fluctuance, no induration Musculoskeletal: full muscle strength, no muscle tenderness, normal joint ROM Neurologic: AAOx3, sensation intact bilaterally Psychiatric: interacting appropriately, not anxious, not encephalopathic, thought process linear Lymph, Heme, Immunologic: no cervical LAD, no supraclavicular LAD ICD10 Worksheet Patient Problems: Problems Problem Status Onset RSV (acute bronchiolitis due to respiratory syncytial virus) Acute
[2018-11-10] MEDS: AZITHROMYCIN 250 MG TAB PO SCH (16:20)
[2018-11-10] MEDS: MELATONIN 3 MG TAB PO SCH (20:37)
[2018-11-10] MEDS: LORazepam 0.5 MG TAB PO PRN (20:38)
[2018-11-10] MEDS: Lenalidomide [Revlimid] 10 MG PO SCH (20:38)
[2018-11-11 04:34] LABS: PLATELET COUNT 148 10^3/uL (150-400)
[2018-11-11] MEDS ORDERED: POTASSIUM CL 10 MEQ TAB PO ONE ×2 (08:05→11:15)
[2018-11-11] MEDS ORDERED: CALCIUM GLUCONATE 50 ML IV ONE (08:07)
[2018-11-11] MEDS: CETIRIZINE 10 MG TAB PO SCH (10:42)
[2018-11-11] MEDS: AZITHROMYCIN 250 MG TAB PO SCH (10:43)
[2018-11-11] MEDS: DOCUSATE SODIUM 100 MG CAP PO SCH ×2 (10:52→22:04)
[2018-11-11] MEDS: guaiFENesin/CODEINE PHOS 10 ML UDCUP PO PRN ×2 (10:52→22:05)
[2018-11-11] MEDS: ACYCLOVIR 400 MG TAB PO SCH ×2 (10:53→22:04)
[2018-11-11] MEDS: ASPIRIN 325 MG TAB PO SCH (10:53)
--- NOTE | 2018-11-11 15:28 | HOSPPROG ---
Hospitalist Progress Note Assessment/Plan: 73 yo F w/PMH of MM currently in remission presenting with SOB, cough, fever and found to have RSV bronchitis as well as new LLL PNA Pneumonia- I reviewed the patients chart and CXR which shows a new LLL infiltrate consistent with PNA. May be viral due to RSV or bacterial. Has been on rocephin and levaquin. Will change to rocephin and azithro for CAP coverage and treat for normal course. -change to cap coverage with rocephin/azithro -add tessalon pearls for cough -oxygen PRN. -await cultures, RSV bronchitis: patient presenting with fever, cough, sob and found to have RSV on respiratory panel. Continued fevers and e/o sepsis led to repeat CXR and initiation of abx for presumed concurrent bacterial pna as next acute hypoxic respiratory failure: with oxygen saturations decreasing to high 80s and with associated sob when on RA, improved on 2L, 2/2 above sepsis: patient initially meeting SIRS criteria with fever, tachycardia. WBC not increased but does have left shift, as above, viral illness with suspected superimposed bacterial pna, fever curve seems to be decreasing hyponatremia: suspect hypovolemic hyponatremia. Cont intravenous saline and repeat serum sodium in am. hypocalcemia: calcium today 6.9 but albumin low and calcium corrects to 8.4. Ionized slightly low as well. On protocol. multiple myeloma: On revlimid, 28 day cycle. cont along with prophylactic bactrim, acyclovir. IP status, patient will require > 48 hours stay for eval/mgmt of above Care plan reviewed with CM, patients present at bedside Subjective: still winded with any exertion. still coughing a lot. Objective: Vital Signs Temp Pulse Resp BP Pulse Ox 36.8 C 62 16 92/53 L 94 11/11/18 15:13 11/11/18 15:13 11/11/18 15:13 11/11/18 15:13 11/11/18 15:13 Laboratory Results 11/11/18 04:25 11/11/18 04:25 11/10/18 11/11/18 11/12/18 05:59 05:59 05:59 Intake Total 950 1250 Output Total 150 Balance 950 1100 - Physical Exam Constitutional: no apparent distress, appears nourished, not in pain Eyes: PERRL, anicteric sclera, EOMI Ears, Nose, Mouth, Throat: moist mucous membranes, hearing normal, ears appear normal, no oral mucosal ulcers Cardiovascular: regular rate and rhythym, no murmur, rub, or gallop Respiratory: no respiratory distress, inspiratory crackles Gastrointestinal: normoactive bowel sounds, soft, non-tender abdomen, no palpable masses Genitourinary: no bladder fullness, no bladder tenderness, no renal bruits Skin: no rashes or abrasions, no fluctuance, no induration Musculoskeletal: full muscle strength, no muscle tenderness, normal joint ROM Neurologic: AAOx3, sensation intact bilaterally Psychiatric: interacting appropriately, not anxious, not encephalopathic, thought process linear Lymph, Heme, Immunologic: no cervical LAD, no supraclavicular LAD ICD10 Worksheet Patient Problems: Problems Problem Status Onset RSV (acute bronchiolitis due to respiratory syncytial virus) Acute
--- NOTE | 2018-11-11 17:02 | ASMTCMCOM ---
CM Note CM Note Notes: Patient has a new LLL infiltrate consistent with PNA. Patient being changed to rocephin and azithro for CAP coverage.The discharge plan remains independent, home with . CM available for any d/c needs that might arise. Date Signed: 11/11/2018 05:01 PM Electronically Signed By:Spring Stanton LCSW
[2018-11-11] MEDS ORDERED: POTASSIUM CL 20 MEQ TAB PO ONE (20:34)
[2018-11-11] MEDS: Lenalidomide [Revlimid] 10 MG PO SCH (22:00)
[2018-11-11] MEDS: LORazepam 0.5 MG TAB PO PRN (22:04)
[2018-11-11] MEDS: MELATONIN 3 MG TAB PO SCH (22:04)
[2018-11-12] MEDS ORDERED: POTASSIUM CL 20 MEQ TAB PO ONE ×2 (05:32→08:45)
[2018-11-12] MEDS ORDERED: CALCIUM GLUCONATE 50 ML IV ONE (06:00)
[2018-11-12] MEDS: ACYCLOVIR 400 MG TAB PO SCH ×2 (09:33→20:46)
[2018-11-12] MEDS: ASPIRIN 325 MG TAB PO SCH (09:33)
[2018-11-12] MEDS: AZITHROMYCIN 250 MG TAB PO SCH (09:34)
[2018-11-12] MEDS: SULFAMETHOX/TMP 800/160 MG 1 TAB PO SCH (09:35)
[2018-11-12] MEDS: CETIRIZINE 10 MG TAB PO SCH (09:36)
[2018-11-12] MEDS: DOCUSATE SODIUM 100 MG CAP PO SCH ×2 (10:00→21:30)
[2018-11-12] MEDS ORDERED: DIPHENHYDRAMINE CREAM TP PRN (11:07)
--- NOTE | 2018-11-12 15:29 | HOSPPROG ---
Hospitalist Progress Note Assessment/Plan: 73 yo F w/PMH of MM currently in remission presenting with SOB, cough, fever and found to have RSV bronchitis as well as new LLL PNA Pneumonia- I reviewed the patients chart and CXR which shows a new LLL infiltrate consistent with PNA. May be viral due to RSV or bacterial. Has been on rocephin and levaquin. cont rocephin and azithro for CAP coverage and treat for normal course. -cont cap coverage with rocephin/azithro -add tessalon pearls for cough -oxygen PRN. -await cultures, -repeat CXR today with mild improvement on my read. RSV bronchitis: patient presenting with fever, cough, sob and found to have RSV on respiratory panel. Continued fevers and e/o sepsis led to repeat CXR and initiation of abx for presumed concurrent bacterial pna as next acute hypoxic respiratory failure: with oxygen saturations decreasing to high 80s and with associated sob when on RA, improved on 2L, 2/2 above sepsis: patient initially meeting SIRS criteria with fever, tachycardia. WBC not increased but does have left shift, as above, viral illness with suspected superimposed bacterial pna, fever curve seems to be decreasing hyponatremia: suspect hypovolemic hyponatremia. Cont intravenous saline and repeat serum sodium in am. hypocalcemia: calcium today still low, but albumin low and calcium corrects to 8.4. Ionized slightly low as well. On protocol. Will give intravenous calcium gluconate. multiple myeloma: On revlimid, 28 day cycle. cont along with prophylactic bactrim, acyclovir. IP status, patient will require > 48 hours stay for eval/mgmt of above Care plan reviewed with CM, patients present at bedside Subjective: still coughing a lot, tired, short of breath Objective: Vital Signs Temp Pulse Resp BP Pulse Ox 37.0 C 68 16 101/60 94 11/12/18 11:51 11/12/18 11:51 11/12/18 11:51 11/12/18 11:51 11/12/18 12:26 Laboratory Results 11/11/18 04:25 11/12/18 04:12 11/11/18 11/12/18 11/13/18 05:59 05:59 05:59 Intake Total 1250 2000 Output Total 150 Balance 1100 2000 - Physical Exam Constitutional: no apparent distress, appears nourished, not in pain Eyes: PERRL, anicteric sclera, EOMI Ears, Nose, Mouth, Throat: moist mucous membranes, hearing normal, ears appear normal, no oral mucosal ulcers Cardiovascular: regular rate and rhythym, no murmur, rub, or gallop Respiratory: no respiratory distress, reduced air movement, inspiratory crackles Gastrointestinal: normoactive bowel sounds, soft, non-tender abdomen, no palpable masses Genitourinary: no bladder fullness, no bladder tenderness, no renal bruits Skin: no rashes or abrasions, no fluctuance, no induration Musculoskeletal: full muscle strength, no muscle tenderness, normal joint ROM Neurologic: AAOx3, sensation intact bilaterally Psychiatric: interacting appropriately, not anxious, not encephalopathic, thought process linear Lymph, Heme, Immunologic: no cervical LAD, no supraclavicular LAD ICD10 Worksheet Patient Problems: Problems Problem Status Onset RSV (acute bronchiolitis due to respiratory syncytial virus) Acute
[2018-11-12] MEDS: Lenalidomide [Revlimid] 10 MG PO SCH (20:48)
[2018-11-12] MEDS: MELATONIN 3 MG TAB PO SCH (20:49)
[2018-11-13] MEDS: LORazepam 0.5 MG TAB PO PRN (03:21)
[2018-11-13] MEDS ORDERED: POTASSIUM CL 10 MEQ TAB PO ONE (08:00)
[2018-11-13] MEDS: CETIRIZINE 10 MG TAB PO SCH (09:10)
[2018-11-13] MEDS: ACYCLOVIR 400 MG TAB PO SCH (09:10)
[2018-11-13] MEDS: AZITHROMYCIN 250 MG TAB PO SCH (09:11)
[2018-11-13] MEDS: ASPIRIN 325 MG TAB PO SCH (09:11)
[2018-11-13] MEDS: DOCUSATE SODIUM 100 MG CAP PO SCH (09:15)
[2018-11-13 11:53] VITALS: BP 91/48
--- NOTE | 2018-11-13 15:26 | ASMTLACE ---
LACE Length of stay for Answers: 4-6 days current admission Acuity / Level of Answers: Yes Care: Did the patient have an inpatient admission? Comorbidities - select Answers: Any tumor (including all that apply lymphoma or leukemia) Other Notes: Multi-mylomain remission, Multi & Rib fracture # of Emergency department Answers: 1-2 visits in the last 6 months Score: 11 Date Signed: 11/13/2018 03:26 PM Electronically Signed By:Hannah Faith RN
--- NOTE | 2018-11-13 16:27 | PDDCSUM ---
Discharge Summary Discharge Summary: Discharge diagnosis Bacterial Pneumonia Respiratory syncytial virus Multiple myeloma Hyponatremia Hypokalemia Hypocalcemia Acute hypoxemic respiratory failure Patient is a 73-year-old female who was admitted with acute hypoxemic respiratory failure. Respiratory pathogen panel was obtained which was positive for respiratory syncytial virus. Chest x-ray showed a right lobar pneumonia which was initially thought to be due to RSV. However she worsened and had a positive ProStat procalcitonin and so she was started on antibiotics for community-acquired pneumonia. She continued to be hypoxic requiring fairly substantial amounts of oxygen. Repeat chest x-ray showed minimal improvement of her infiltrate. However over the course of her treatment she was able to be weaned down and ultimately off of oxygen. She was discharged home to complete a course of 7 days of antibiotics for community-acquired pneumonia. Disposition Home independent New medications Levofloxacin 750 mg daily I spent over 30 min on the discharge of this patient
--- NOTE | 2018-11-17 12:27 | PQFORM ---
PHYSICIAN QUERY FORM Needs Your Response This query form is being sent to you to assure this patient record is coded properly. Please respond to the question below: CORE WINDER QUESTION: Dear Dr. Hale, On admission, Milana was documented by Dr. Wen Caceres as having sepsis, having met SIRS criteria with fever, tachycardia, and a left shift of WBCs. Based on the clinical findings and your professional judgment, can a diagnosis of sepsis be added to the discharge summary? ____x__Yes No Undetermined at discharge Thank you for clarifying, PREM Chauhan HIM Coding INSTRUCTIONS FOR RESPONSE: Answer question by clicking on the "Edit Document" button. Move cursor to area below the stars. When complete, hit "Save." Click on the "Sign" button, then click "Sign" again. Type in your PIN and hit "Enter." MTDD
== END 2018-11-13 15:09 | disposition home or self-care (01) | DRG 871 ==
LOC: F1N 11-08 00:42 → OBSVTOIN 11-09 17:00
PROVIDERS: ADMIT Family Medicine; ATTEND Internal Medicine
DX: A41.9 Sepsis, unspecified organism (principal); J15.9 Unspecified bacterial pneumonia; J96.01 Acute respiratory failure with hypoxia; E87.1 Hypo-osmolality and hyponatremia; C90.01 Multiple myeloma in remission; E83.51 Hypocalcemia
CPT/HCPCS: G0378; J0610; J0696; J1956; J7613

== ENCOUNTER → 2018-12-17 | Outpatient (CLI) | payer OTHER | LOC: FIMAGING 15:06 | PROVIDERS: ATTEND Family Medicine | DX: J18.9 Pneumonia, unspecified organism (principal) ==